=== PATIENT | male | born 1965 | race Hispanic/Latino ===

== ENCOUNTER 2016-03-23 09:12 | Day surgery (SDC) | payer OTHER ==
[2016-03-23] VITALS (10 sets, daily range): BP systolic 110–137; BP diastolic 63–87; PULSE 65–77; RESP 16–21; O2SAT 95–100
[~2016-03-23] VITALS: Ht 188 cm; Wt 109.0 kg
[~2016-03-23 09:12] MED LIST: CeFAZolin 2 Gm/50 mL D5W IV Premix IV ONE; MULT-1018 PO; NAPR220C11 PO; OXYC5CAP4 PO
[2016-03-23] MEDS ORDERED: Succinylcholine Chloride 20 mg/mL 5 mL Inj ONE (09:13)
[2016-03-23] MEDS ORDERED: BUPIVACAINE 0.25%/EPI 50 mL Inj ONE (09:13)
[2016-03-23] MEDS ORDERED: fentaNYL-PF 50 mCg/mL 2 mL Inj ONE (09:13)
[2016-03-23] MEDS ORDERED: Propofol 10,000 mCg/mL 20 mL Inj ONE (09:13)
[2016-03-23] MEDS ORDERED: Neostigmine 1 mg/mL 5 mL Inj ONE (09:13)
[2016-03-23] MEDS ORDERED: Rocuronium 10 mg/mL 5 mL Inj ONE (09:13)
[2016-03-23] MEDS ORDERED: Bupivacaine-MPF 0.25% 30 mL Inj ONE (09:13)
[2016-03-23] MEDS ORDERED: Glycopyrrolate 0.2 mg/mL 5 mL Inj ONE (09:13)
[2016-03-23] MEDS ORDERED: Dexamethasone 4 mg/mL Inj ONE (09:13)
[2016-03-23] MEDS ORDERED: Ondansetron 2 mg/mL 2 mL Inj ONE (09:13)
[2016-03-23] MEDS ORDERED: EPHEDrine/NS 5 mg/mL 5 mL Syringe ONE (09:13)
[2016-03-23] MEDS: Lactated Ringer's 1,000 ML IV SCH ×2 (09:49→10:45)
--- NOTE | 2016-03-23 10:45 | PCM.HPANE ---
Patient Data Surgeon Admitting Provider: Attending Provider:Aditya Terry DO Primary Care Physician:Zainab Slade MD Other Provider:Macarena Brianingham Anesthesia Reason for Visit Right Ac Joint Arthritis, Right 3RD Trigger Finger Ht/WT & BMI Height (Feet): 6 Height (Inches): 2.00 Weight (Kilograms): 109. Body Mass Index 30.00 Allergies Coded Allergies: Sulfa (Sulfonamide Antibiotics) (Verified Allergy, Severe, HIVES, 03/17/16) gabapentin (Verified Allergy, Unknown, UNKNOWN, 03/17/16) topiramate (Verified Allergy, Unknown, UNKNOWN, 03/17/16) Past Anesthesia History Anesthesia History: Positive for:: Anesthesia Reactions (PONV), Denies:: Abnormal Airway, Difficult Intubation, Fam Anesthesia Reaction, Fam Malignant Hypertherm, Malignant Hyperthermia Diabetes History Hx Diabetes?: No MRSA MRSA: No Medications Hypertension Medication: No Home Meds Incl Beta Leela: No Reported Medications oxyCODONE 5 Mg [id number] Mg PO Q4H PRN For Pain Ref 0 03/17/16 Naproxen Sodium (Aleve)220 Mg [id number] Mg PO BID PRN PRN 03/17/16 Multivitamin (Multi Vitamin Daily)1 Each Tablet1 Each PO DAILY 30 Days Ref 0 CHEWABLE 10/03/14 History History of ENT Problems?: Yes HEENT History: Denies:: Abnormal Airway Difficult Intubation Teeth Condition: Missing Teeth Broken Teeth Tooth Decay Hx of Heart Problems?: Yes Cardiovascular History: Positive for:: Chest Pain (06/2010 R/T BOUTS OF SVT) Hypertension (HX OF) Irregular Heartbeat (06/2010 SVT DURING ACUTE PANCREATITIS) Denies:: Heart Murmur (ECHO 06/2010 EF 55-60%) Valvular Heart Disease Other History/Comments no current cardiac symptoms Hx of Respiratory Problem?: Yes Respiratory History: Positive for:: Use of C-PAP Machine (LIZ+-CURRENTLY USING NO CPAP sleep study 02/2015) Denies:: Asthma COPD Emphysema Oxygen Administration Tuberculosis Hx Neurologic Problems?: Yes Neurological History: Positive for:: Headaches (related to cervical spine ) Denies:: CVA Seizures Other Neurological Pertinent: C/OF NEUROPATHY BEFORE & AFTER CERVICAL SURGERY PAIN MANAGEMENT BY [facility] Hx of GI Problems?: Yes Gastrointestinal History: Positive for:: Gastroesphageal Reflux (HX ESOPHAGITIS) Hiatal Hernia Denies:: Diverticulitis (DIVERTICULOSIS (WHICH PT DENIES)) Liver Disease (HX ACUTE PANCREATITIS) Hx of Problems?: Yes Male Hx: Denies:: Prostate Problems Scrotal Mass Testicular Surgery Skin History: Denies:: History Skin Disorders? Pressure Ulcers Hx Musculoskeletal Problems?: Yes Musculoskeletal History: Positive for:: Back Injury (C/OF LUMBAR RADICULOPATHY ) Degenerative Joint Musculoskeletal Trauma (S/P SHOULDER RPR,LT KNEE SCOPE/ACL RPR/LOOSE BODY REMOVAL/HARDWARE REMOVAL) Osteoarthritis (KNEES) Hx of Psycho/Social Problems?: Yes Psycho Social History: Positive for:: Anxiety Hx Depression Hx Surgeries?: Yes (C5-7 ACDF,LT KNEE SCOPE,ACL RPR LT,REMOVAL LOOSE BODIES LT KNEE,LT KNEE HDW) Hx Any Other Health Problems?: Yes Other History: Positive for:: Hospitalization (2010 PANCREATITIS) Denies:: Cancer Endocrine Disease Thyroid Disease History Blood Transfusions: Denies:: Blood Transfusions Hx Diabetes: No Hx Alcohol Use: NoHx Substance Use: No Smoking Status: Former Smoker Have You Smoked inLast 12 mo: No Stop/Bang S-Snoring: Do You Snore Loudly: Yes T-Tired: feel tired, fatigued: Yes O-Obsered: Observed not breath: Yes P-Blood Pressure: treated: Yes B- Body Mass Index > 35 kg/m2: No A- Age over 50: Yes N- Neck Large Circumference: Yes G- Gender Male: Yes LIZ Total Score: 7 LIZ Risk Assessment: High Risk, =/>3 Yes Risk Assessment Category Category 1A: Patient has history of documented sleep apnea, and HAS NOT received any narcotic, sedative or anesthesia administration during this stay. Category 1B: Patient has history of documented sleep apnea, and HAS received any narcotic , sedative or anesthesia administration during this stay Category 2: Patient has SUSPECTED Obstructive Sleep Apnea, and HAS received any narcotic , sedative or anesthesia administration during this stay. Category 3: Patient has SUSPECTED Obstructive Sleep Apnea and HAS NOT received narcotic, sedative or anesthesia administration during this stay. Category 4: Outpatient in Procedural Areas with known sleep apnea or who screen positive for High Risk via the STOP/BANG questionnaire. Exam Exam Vital Signs Vital Signs Date Time Temp Pulse Resp B/P Pulse Ox O2 Delivery O2 Flow Rate FiO2 03/23/16 09:45 36.6 75 16 130/87 97 Room Air General Appearance: Alert, Oriented X3, Cooperative, No Acute Distress HEENT/AIRWAY: MP 2 Lungs: Clear to Auscultation, Normal Air Movement Heart: Exam Unremarkable, Regular Rate/Rhythm, No Murmurs/Rubs/Gallops Meds/Labs/Diagnostics Admission Meds Current Medications Lactated Ringer's (Lr) 1,000 ml @ 120 mls/hr Q8H20M IV Last administered on t 09:49; Start 03/23/16 at 05:00; Stop 03/23/16 at 13:19 Plan Impression Patient chart reviewed, patient interviewed and anesthestic plan with risks, benefits, and alternatives discussed, and informed consent obtained. NPO Status: 2145 03/22 ASA Physical Status: ASA3 Severe Disease Anesthetic Plan: GA, Regional Block Bene/Risks/Altern/Consents: Yes HP Complete Prior to Induction: Yes Aditya Goldberg MD Mar 23, 2016 09:52
[2016-03-23] MEDS ORDERED: Lidocaine 1%-Epi 1:100,000 20 mL Inj INFILTRATE ONE (11:21)
[2016-03-23] MEDS ORDERED: Lactated Ringer's 1,000 ML IV SCH (11:22)
[2016-03-23] MEDS ORDERED: Lactated Ringer's 500 ML IV PRN (11:22)
[2016-03-23] MEDS ORDERED: Phenylephrine 10,000 mCg/mL Inj IVPUSH PRN (11:25)
[2016-03-23] MEDS ORDERED: hydrALAZINE 20 mg/mL Inj IVPUSH PRN (11:25)
[2016-03-23] MEDS ORDERED: HYDROmorphone 1 mg/mL Inj IVPUSH PRN (11:25)
[2016-03-23] MEDS ORDERED: EPHEDrine Sulfate 50 mg/mL Inj IVPUSH PRN (11:25)
[2016-03-23] MEDS ORDERED: MetoCLOpramide 5 mg/mL 2 mL Inj IVPUSH PRN (11:25)
[2016-03-23] MEDS ORDERED: Labetalol 5 mg/mL 4 mL Inj IV PRN (11:25)
[2016-03-23] MEDS ORDERED: Ondansetron 2 mg/mL 2 mL Inj IVPUSH PRN (11:25)
[2016-03-23] MEDS ORDERED: fentaNYL-PF 50 mCg/mL 2 mL Inj IVPUSH PRN (11:25)
[2016-03-23] MEDS ORDERED: Atropine 0.4 mg/mL Inj IVPUSH PRN (11:25)
[2016-03-23] MEDS ORDERED: Ropivacaine-PF 0.5% 30 mL Inj INFILTRATE ONE (11:49)
[2016-03-23] MEDS ORDERED: Lactated Ringer's 1,000 ML IV ONE (12:30)
--- NOTE | 2016-03-23 14:32 | OP ---
[address] [address] OPERATIVE REPORT PATIENT: COSMO CRUZ : 1965 MR#: [id number] ADMIT: 03/23/2016 JOB ID: [id number] DATE OF SURGERY: 03/23/2016 PREOPERATIVE DIAGNOSIS(ES): Right shoulder acromioclavicular joint arthritis with impingement and possible biceps tear, with right 3rd trigger finger. POSTOPERATIVE DIAGNOSIS(ES): Right shoulder impingement with acromioclavicular joint arthritis and biceps tendinitis and tear, with 3rd trigger finger. PROCEDURE: 1. Right shoulder video arthroscopy with subacromial decompression, distal clavicle excision, mini-open subpectoral biceps tenodesis. 2. Right 3rd trigger finger release. SURGEON: Aditya Terry DO. INDICATIONS: The patient is a 51-year-old male with right shoulder pain over primarily the superior shoulder and difficulty with throwing motion, as well as triggering in his A1 arcenio. He failed conservative measures and wished to proceed with shoulder arthroscopy. We discussed risks, benefits, and possible complications of surgery. All questions were answered. He wished to proceed. A assistant foreman was required for the successful completion of this procedure. PROCEDURE IN DETAIL: The patient was brought to the operating room. He was given an interscalene block and general anesthetic. He was placed comfortably into the beach chair position. The right shoulder was sterilely prepped and draped. An incision was made over the posterolateral shoulder for posterior portal. Inspection was undertaken. His glenohumeral joint was found to be free of any significant articular pathology. His subscapularis was intact. His rotator cuff was intact. His long head biceps tendon had some fraying and partial-thickness tear, as well as erythema, and I elected to release this using the anterior portal to do a biceps tenodesis. Next, the scope was removed and replaced into the subacromial space, and a lateral portal was established. A soft tissue decompression was undertaken to remove the tissue under the acromion. His rotator cuff was inspected and found to be intact. He had a fair amount of acromial bone spur, and I removed about 4-5 mm of bone. Next, the distal clavicle was addressed and using a bur and the anterior portal, about 8 mm of bone was removed leaving a gap of 1 cm between the acromion and the clavicle. Care was taken to ensure that the distal clavicle was excised in its entirety anterior to posterior, superficial to deep. Next, the arthroscopic portion was completed, and an incision was made over the distal aspect of the bicipital groove. Dissection was carefully carried through the subcutaneous tissue. The fascia was incised overlying the biceps and a lateral retractor was placed firmly onto the bone. The long head biceps tendon was then herniated out through the wound. The soft tissue was cleared off the distal aspect of the bicipital groove, and a 4.5 drill hole was made proximally, two 2-0 drill holes made distally. The biceps tendon was then cut to the appropriate length at the musculotendinous junction and whipstitched with the FiberWire suture. Then, using a CoMentis suture passer, the whipstitched ends of suture were passed, so that they entered into the 4.5 drill hole and exited out 2-0 drill holes using a free needle. This was then tied back down onto itself with appropriate resting tension. The wound was then irrigated and closed with 2-0 Vicryl to close the fascia and subcu. The skin was closed with running subcuticular 4-0 Monocryl. Next, the trigger finger was addressed, and a small transverse incision was made over the A1 arcenio of the right 3rd finger. Dissection was carefully carried through subcutaneous tissue, and the A1 arcenio was then identified. This was released longitudinally in its entirety. The wound was then irrigated and closed with interrupted nylon suture. Naropin was added as an adjunct local anesthetic. Sterile dressings were applied. The patient tolerated the procedures well. POSTOPERATIVE PROTOCOL: Have the patient maintain his arm in an arm sling for three weeks with no lifting more than 1 pound for six weeks. Follow up in the clinic in two weeks for recheck with suture removal. He was given a prescription for oxycodone 10 mg, #90, for pain and will then continue on his normal pain regimen, for which he is on a pain contract.
--- NOTE | 2016-03-23 14:43 | PCM.ANEP1 ---
Post Anesthesia Phase 1 PACU Phase 1 Assessment Vital Signs Vital Signs Date Time Temp Pulse Resp B/P Pulse Ox O2 Delivery O2 Flow Rate FiO2 03/23/16 14:01 36.2 70 16 124/84 95 Room Air 03/23/16 13:55 36.0 67 18 115/78 96 Room Air 03/23/16 13:50 65 19 124/75 96 Room Air 03/23/16 13:45 36.0 67 18 112/77 95 Room Air 03/23/16 13:30 71 20 111/67 96 Room Air 03/23/16 13:25 73 21 110/68 96 Room Air 03/23/16 13:20 71 21 113/63 95 Room Air 03/23/16 13:15 76 20 116/66 98 Room Air 03/23/16 13:11 36.1 77 20 137/70 100 Simple Mask 8 03/23/16 09:45 36.6 75 16 130/87 97 Room Air Anesthetic Administered: GA Level of Alertness: Awake, talking URBINA's with Equal Strength: Yes Pain: No Nausea or Vomiting: No Oxygen Delivery: Simple Mask Lungs: Clear to Auscultation, Normal Air Movement Aditya Goldberg MD Mar 23, 2016 14:43
--- NOTE | 2016-03-23 14:46 | PCM.ANEP2 ---
Post Anesthesia Evaluation ASA/CMS Post Anesthesia VS in Patient's Normal Range?: Yes Resp Stable; Airway Patent?: Yes CV Function & Hydration Stable: Yes Mental Status Recovered?: Yes Pain control Satisfactory?: Yes N/V Control Satisfactory?: Yes Aditya Goldberg MD Mar 23, 2016 14:46
[2016-03-23] MEDS ORDERED: Ketorolac 15 mg/mL Inj IVPUSH ONE (14:55)
[2016-03-23] MEDS ORDERED: oxyCODONE-Acetamin 5-325 mg Tablet PO PRN (14:55)
== END 2016-03-23 23:59 | disposition home or self-care (01) ==
LOC: SAS 09:12
PROVIDERS: ATTEND Orthopaedic Surgery
DX: M75.41 Impingement syndrome of right shoulder (principal); M75.21 Bicipital tendinitis, right shoulder; M19.011 Primary osteoarthritis, right shoulder; M65.331 Trigger finger, right middle finger; Z53.33 Arthroscopic surgical procedure converted to open procedure
CPT/HCPCS: 23430; 29824; 29826; J0171; J0330; J0690; J1100; J2250; J2405; J2710; J2765; J2795; J7120